=== PATIENT | male | born 1985 | race Caucasian/White ===

== ENCOUNTER 2018-03-27 14:16 | Emergency (ER) | payer OTHER ==
[~2018-03-27] VITALS: Ht 177.8 cm; Wt 86.2 kg
[~2018-03-27 14:16] MED LIST: BACTRIM DS TAB1 EACH PO; NOHOMEMEDICATIONS; NORCO 5-325 TA1 EAC1 PO; NORCO 5-325 TA1 EACH PO; ZPAK PO
[2018-03-27 15:55] VITALS: BP 118/76
--- NOTE | 2018-03-28 15:30 | EKG ---
[place] [address] ELECTROCARDIOGRAM REPORT Name: TEJAS SCHMIDT 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: [facility] : 1985 Requested By: Elidia Iqbal Order Number: [id number] MD: Romel Newman Measurements Intervals [place] Rate: 89 P: 75 DC: 146 QRS: 79 QRSD: 96 T: 14 QT: 341 QTc: 415 Interpretive Statements Sinus rhythm Baseline wander in lead(s) V1,V2 Compared to ECG 07/14/2015 18:15:08 No significant changes Electronically Signed On 03-28-2018 15:30:28 [employer] by Romel Newman [email or web address] <ELECTRONICALLY SIGNED> By: Romel Newman MD, [facility] 03/28/18 1530 1453 1453 Romel Newman MD, FAC /EPI
== END 2018-03-27 15:56 | disposition home or self-care (01) ==
LOC: M.ERS 14:16
DX: F41.9 Anxiety disorder, unspecified (principal); R07.89 Other chest pain; F31.9 Bipolar disorder, unspecified; F17.210 Nicotine dependence, cigarettes, uncomplicated

== ENCOUNTER 2018-11-24 14:01 | Emergency (ER) | payer OTHER ==
[~2018-11-24] VITALS: Ht 177.8 cm; Wt 90.7 kg
[2018-11-24 14:15] LABS: ABSOLUTE BASOPHILS 0.1 thou/uL (0.0-0.2); ABSOLUTE EOSINOPHILS 0.1 thou/uL (0.0-0.7); ABSOLUTE LYMPHOCYTES 5.6 thou/uL (0.8-5.3); ABSOLUTE MONOCYTES 1.7 thou/uL (0.0-1.2); ABSOLUTE NEUTROPHILS 8.4 thou/uL (1.6-8.1); BASOPHILS 0.8 %; EOSINOPHILS 0.8 %; HEMOGLOBIN 13.9 gm/dL (14.0-18.0); LYMPHOCYTES 34.9 %; MCH 30.9 pg (26.0-34.0); MCHC 34.7 g/dL (28.0-37.0); MCV 89.1 fL (80.0-100.0); MONOCYTES 10.9 %; MPV 7.5 fl. (7.2-11.1); NUCLEATED RBCS 0 /100WBC; PLATELET COUNT* 345 thou/uL (150-400); POLYS 52.6 %; RBC 4.49 mil/uL (4.50-6.00); RDW-CV 13.4 % (10.5-14.5); WBC 15.9 thou/uL (4.0-11.0)
[2018-11-24 14:27] LABS: APTT 27.8 Seconds (25.0-31.3); INR 1.1; PROTIME 11.1 Seconds (9.20-11.50)
[2018-11-24 14:39] LABS: ANION GAP 21 mmol/L (7-16); BUN 24 mg/dL (7-18); CALCIUM 9.8 mg/dL (8.5-10.1); CHLORIDE 100 mmol/L (98-107); CO2 17 mmol/L (21-32); CREATININE 1.7 mg/dL (0.6-1.3); GLUCOSE 87 mg/dL (70-99); POTASSIUM 3.2 mmol/L (3.5-5.1); SODIUM 138 mmol/L (136-145)
--- NOTE | 2018-11-24 14:43 | EKG ---
[place] [address] ELECTROCARDIOGRAM REPORT Name: TEJAS SCHMIDT Room: 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 : 1985 Requested By: Gaudencio Swanson Order Number: [id number] MD: Romel Newman Measurements Intervals [place] Rate: 122 P: 75 KS: 138 QRS: 80 QRSD: 84 T: -26 QT: 310 QTc: 442 Interpretive Statements Sinus tachycardia Probable left atrial enlargement Borderline repolarization abnormality Baseline wander in lead(s) III Compared to ECG 03/27/2018 14:53:49 Sinus rhythm no longer present Electronically Signed On 11-24-2018 14:43:13 CDT by Romel Newman [email or web address] <ELECTRONICALLY SIGNED> By: Romel Newman MD, [facility] 11/24/18 1443 01 01 Romel Newman MD, FACC /EPI
[2018-11-24 14:52] LABS: ALKALINE PHOSPHATASE 72 U/L (46-116); LIPASE 88 U/L (73-393); SGOT 40 U/L (15-37); SGPT 43 U/L (30-65); TOTAL BILIRUBIN 1.6 mg/dL (<0.1-1.0); TOTAL PROTEIN 8.2 g/dL (6.4-8.2); TROPONIN-I LEVEL <0.06 ng/mL (<0.06)
[2018-11-24 15:44] LABS: URINE BILIRUBIN NEGATIVE (Negative); URINE BLOOD NEGATIVE (Negative); URINE CLARITY CLEAR; URINE COLOR YELLOW; URINE GLUCOSE-RANDOM NEGATIVE (Negative); URINE KETONES 2+ (Negative); URINE LEUKOCYTES-REFLEX NEGATIVE (Negative); URINE NITRITE-REFLEX NEGATIVE (Negative); URINE PROTEIN TRACE (Negative)
[2018-11-24 15:59] LABS: AMP/METHAMP POSITIVE (Negative); BARBITURATES Negative (Negative); BENZODIAZEPINES Negative (Negative); COCAINE Negative (Negative); METHADONE Negative (Negative); OPIATES Negative (Negative); PCP Negative (Negative); THC Negative (Negative)
[2018-11-24 17:01] VITALS: BP 147/81
== END 2018-11-24 17:02 | disposition home or self-care (01) ==
LOC: M.ERS 14:01
PROVIDERS: Emergency Medicine Emergency Medical Services
DX: R55 Syncope and collapse (principal); F17.210 Nicotine dependence, cigarettes, uncomplicated; F31.9 Bipolar disorder, unspecified; F41.9 Anxiety disorder, unspecified

== ENCOUNTER 2019-08-31 18:34 | Emergency (ER) | payer OTHER ==
[~2019-08-31] VITALS: Ht 180.3 cm; Wt 88.9 kg
[2019-08-31 20:00] LABS: ABSOLUTE BASOPHILS 0.1 thou/uL (0.0-0.2); ABSOLUTE EOSINOPHILS 0.2 thou/uL (0.0-0.7); ABSOLUTE LYMPHOCYTES 2.5 thou/uL (0.8-5.3); ABSOLUTE MONOCYTES 0.7 thou/uL (0.0-1.2); ABSOLUTE NEUTROPHILS 3.2 thou/uL (1.6-8.1); BASOPHILS 1.2 %; EOSINOPHILS 3.6 %; HEMATOCRIT 39.2 % (42.0-52.0); HEMOGLOBIN 13.5 gm/dL (14.0-18.0); LYMPHOCYTES 37.1 %; MCH 31.3 pg (26.0-34.0); MCHC 34.3 g/dL (28.0-37.0); MCV 91.1 fL (80.0-100.0); MONOCYTES 10.5 %; MPV 7.4 fl. (7.2-11.1); NUCLEATED RBCS 0 /100WBC; PLATELET COUNT* 391 thou/uL (150-400); POLYS 47.6 %; RBC 4.31 mil/uL (4.50-6.00); RDW-CV 13.1 % (10.5-14.5); WBC 6.6 thou/uL (4.0-11.0)
[2019-08-31 20:09] LABS: CALCIUM 8.7 mg/dL (8.5-10.1); CREATININE 1.1 mg/dL (0.6-1.3); POTASSIUM 3.5 mmol/L (3.5-5.1)
[2019-08-31 20:14] LABS: ALBUMIN 4.2 g/dL (3.4-5.0); TOTAL BILIRUBIN 0.6 mg/dL (<0.1-1.0); TOTAL PROTEIN 7.8 g/dL (6.4-8.2)
[2019-08-31] MEDS ORDERED: BACTRIM DS TAB1 EACH PO (20:19)
[2019-08-31] MEDS ORDERED: IBUPROFEN 800800 M1 PO (20:19)
[2019-08-31] MEDS ORDERED: KEFLEX500 M1 PO (20:19)
[2019-08-31] MEDS ORDERED: NORCO 5-325 TA1 EAC1 PO (20:19)
[2019-08-31 21:27] VITALS: BP 132/85
== END 2019-08-31 21:45 | disposition home or self-care (01) ==
LOC: M.ERS 18:34
PROVIDERS: Nurse Practitioner Family
DX: L03.114 Cellulitis of left upper limb (principal); G89.18 Other acute postprocedural pain; Z91.19 Patient's noncompliance with other medical treatment and regimen; F17.210 Nicotine dependence, cigarettes, uncomplicated

== ENCOUNTER 2019-10-16 15:57 | Emergency (ER) | payer OTHER ==
[~2019-10-16] VITALS: Ht 177.8 cm; Wt 90.7 kg
[~2019-10-16 15:57] MED LIST changes: +IBUPROFEN 800800 M1 PO; +KEFLEX500 M1 PO
[2019-10-16 17:26] LABS: ABSOLUTE EOSINOPHILS 0.1 thou/uL (0.0-0.7); ABSOLUTE LYMPHOCYTES 0.8 thou/uL (0.8-5.3); ABSOLUTE MONOCYTES 0.5 thou/uL (0.0-1.2); ABSOLUTE NEUTROPHILS 6.2 thou/uL (1.6-8.1); BASOPHILS 0.6 %; HEMATOCRIT 42.2 % (42.0-52.0); HEMOGLOBIN 14.5 gm/dL (14.0-18.0); LYMPHOCYTES 10.9 %; MCH 30.7 pg (26.0-34.0); MCHC 34.3 g/dL (28.0-37.0); MCV 89.6 fL (80.0-100.0); MONOCYTES 6.8 %; MPV 6.7 fl. (7.2-11.1); NUCLEATED RBCS 0 /100WBC; PLATELET COUNT* 317 thou/uL (150-400); POLYS 80.7 %; RBC 4.71 mil/uL (4.50-6.00); RDW-CV 13.5 % (10.5-14.5); WBC 7.7 thou/uL (4.0-11.0)
[2019-10-16 17:38] LABS: CREATININE 1.1 mg/dL (0.6-1.3); POTASSIUM 3.2 mmol/L (3.5-5.1)
[2019-10-16 17:42] LABS: ALBUMIN 3.4 g/dL (3.4-5.0); TOTAL BILIRUBIN 0.7 mg/dL (<0.1-1.0)
[2019-10-16] MEDS ORDERED: AMOXICILLIN 50500 MG PO (18:34)
[2019-10-16] MEDS ORDERED: NAPROSYN500 MG PO (18:34)
[2019-10-16] MEDS ORDERED: ONDANSETRON HCL4 M2 PO (18:35)
[2019-10-16 18:50] VITALS: BP 129/84
--- NOTE | 2019-10-17 09:40 | EKG ---
[place] [address] ELECTROCARDIOGRAM REPORT Name: TEJAS SCHMIDT Room: 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 : 1985 Requested By: Karen Pryor Order Number: [id number] MD: Romel Newman Measurements Intervals [place] Rate: 84 P: 79 OR: 141 QRS: 82 QRSD: 93 T: 63 QT: 344 QTc: 407 Interpretive Statements Sinus rhythm Borderline ST elevation, early repolarization Baseline wander in lead(s) V1 Compared to ECG 11/24/2018 14:02:03 Sinus tachycardia no longer present Electronically Signed On 10-17-2019 9:40:21 CDT by Romel Newman [email or web address] <ELECTRONICALLY SIGNED> By: Romel Newman MD, FAC 10/17/19 0940 1642 1642 Romel eNwman MD, [facility] /EPI
== END 2019-10-16 18:51 | disposition home or self-care (01) ==
LOC: M.ERS 15:57
PROVIDERS: Nurse Practitioner Family
DX: J02.0 Streptococcal pharyngitis (principal); F31.9 Bipolar disorder, unspecified; F41.9 Anxiety disorder, unspecified; F17.210 Nicotine dependence, cigarettes, uncomplicated; Z20.828 Contact with and (suspected) exposure to other viral communicable diseases